=== PATIENT | female | born 1990 | race Caucasian/White ===

== ENCOUNTER → 2021-06-16 12:35 | Observation (INO) | END | disposition home or self-care (01) | LOC: 1NENULAB | PROVIDERS: ADMIT Advanced Practice Midwife; ATTEND Advanced Practice Midwife ==

== ENCOUNTER 2021-08-03 08:52 | Inpatient (IN) ==
[2021-08-03] MEDS ORDERED: Metoclopramide 10 MG/2 ML VIAL IVP PRN (09:06)
[2021-08-03] MEDS ORDERED: *HR* Nalbuphine 10 MG/ML AMPUL IV PRN (09:06)
[2021-08-03] MEDS ORDERED: Famotidine 20 MG/2 ML VIAL IVP PRN (09:06)
[2021-08-03] MEDS ORDERED: Ondansetron 4 MG/2 ML VIAL IVP PRN (09:06)
[2021-08-03] MEDS ORDERED: Lidocaine 1% 20 ML MDV INFILT PRN (09:06)
[2021-08-03] MEDS ORDERED: Azithromycin 500 MG in 0.9 % Sodium Chloride 250 ML IVPB PRN (09:06)
[2021-08-03] MEDS ORDERED: Naloxone 0.4 MG/ML INJ IVP PRN (09:06)
[2021-08-03] MEDS ORDERED: miSOPROStoL 25 MCG TABLET PO ONE (09:12)
[2021-08-03] MEDS ORDERED: Oxytocin 20 units/ LR 1000 mL 20 UNIT/1,000 ML BAG IVC SCH ×2 (09:15→21:15)
[2021-08-03] MEDS ORDERED: EPHEDrine 50 MG/ML VIAL IVP PRN (09:32)
[2021-08-03] MEDS ORDERED: Epidural Premix (fent/bupiv) 110 ML EP SCH (09:45)
[2021-08-03] MEDS: Ringers Solution, Lactated 1,000 ML IVC SCH ×3 (10:18→18:18)
[2021-08-03 10:31] LABS: Amphetamine Screen,Urine Negative ng/mL (Cutoff=1000); Barbiturate Screen,Urine Negative ng/mL (Cutoff=200); Basophils % 0.2 %; Benzodiazepines Screen,Urine Negative ng/mL (Cutoff=200); Cannabinoid Screen,Urine Negative ng/mL (Cutoff = 50); Cocaine Screen,Urine Negative ng/mL (Cutoff= 300); Eosinophils % 0.3 %; Hematocrit 36.6 % (35.3-44.9); Hemoglobin 12.5 g/dL (11.5-15.4); Immature Granulocytes % 0.8 % (0-4); Lymphocytes # 2.4 K/mcL (0.6-4.6); Lymphocytes % 25.8 %; Mean Corpuscular HGB Conc 34.2 g/dL (31.6-35.5); Mean Corpuscular Hemoglobin 30.4 pg (28.0-33.3); Mean Corpuscular Volume 89.1 fL (83.0-100.0); Mean Platelet Volume 10.2 fL (9.4-12.4); Monocytes # 0.9 K/mcL (0.0-1.3); Monocytes % 9.3 %; Neutrophils # 5.9 K/mcL (1.6-8.9); Opiate Screen,Urine Negative ng/mL (Cutoff=300); Phencyclidine Screen,Urine Negative ng/mL (Cutoff=25); Platelet Count 274 K/mcL (140-400); Red Blood Count 4.11 M/mcL (3.82-4.97); Red Cell Distribution Width 14.4 % (11.5-14.5); Segmented Neutrophils % 63.6 %; White Blood Count 9.2 K/mcL (4.3-11.1)
[2021-08-03] MEDS ORDERED: Ondansetron ODT 4 MG TAB.RAPDIS SL PRN (21:15)
[2021-08-03] MEDS ORDERED: Measles/Mumps/Rubella Vacc 0.5 ML VIAL SQ PRN (21:15)
[2021-08-03] MEDS ORDERED: Lanolin 7 G OINT...G. TP PRN (21:15)
[2021-08-03] MEDS ORDERED: Benzocaine/Menthol 56 GM AEROSOL SPRAY TP PRN (21:15)
[2021-08-04] MEDS: Ibuprofen 600 MG TABLET PO SCH ×4 (00:36→19:42)
[2021-08-04] MEDS: Acetaminophen 325 MG TABLET PO SCH ×2 (04:17→17:38)
[2021-08-04 05:09] LABS: Basophils % 0.2 %; Eosinophils % 0.3 %; Hematocrit 32.3 % (35.3-44.9); Immature Granulocytes % 0.4 % (0-4); Lymphocytes # 2.4 K/mcL (0.6-4.6); Lymphocytes % 21.2 %; Mean Corpuscular HGB Conc 33.4 g/dL (31.6-35.5); Mean Corpuscular Hemoglobin 30.3 pg (28.0-33.3); Mean Corpuscular Volume 90.7 fL (83.0-100.0); Mean Platelet Volume 10.2 fL (9.4-12.4); Monocytes # 1.4 K/mcL (0.0-1.3); Monocytes % 12.2 %; Neutrophils # 7.3 K/mcL (1.6-8.9); Platelet Count 237 K/mcL (140-400); Red Blood Count 3.56 M/mcL (3.82-4.97); Red Cell Distribution Width 14.4 % (11.5-14.5); Segmented Neutrophils % 65.7 %; White Blood Count 11.2 K/mcL (4.3-11.1)
[2021-08-04 05:10] LABS: Hemoglobin 10.8 g/dL (11.5-15.4)
[2021-08-04] MEDS: Levothyroxine 25 MCG TABLET PO SCH (07:23)
[2021-08-04] MEDS: Prenatal Vit/FA 1 EACH TABLET PO SCH (08:25)
[2021-08-04 08:28] VITALS: TEMP 97.8
[2021-08-05] MEDS: Acetaminophen 325 MG TABLET PO SCH (01:11)
[2021-08-05] MEDS: Ibuprofen 600 MG TABLET PO SCH ×2 (01:11→09:06)
[2021-08-05] MEDS: Levothyroxine 25 MCG TABLET PO SCH (07:38)
[2021-08-05] MEDS: Prenatal Vit/FA 1 EACH TABLET PO SCH (07:38)
[2021-08-05 07:46] VITALS: BP 112/72; PULSE 71; O2SAT 97
== END 2021-08-05 10:15 | disposition home or self-care (01) | DRG 807 ==
LOC: 1NENULAB 08:52 → 1NENUOBS 23:21
PROVIDERS: ADMIT Obstetrics & Gynecology; ATTEND Obstetrics & Gynecology